=== PATIENT | male | born 1950 | race Caucasian/White ===

== ENCOUNTER 2017-12-31 06:14 | Day surgery (SDC) | payer MEDICARE, OTHER ==
[2017-12-31] MEDS ORDERED: CEFAZOLIN 2 GM/50 ML (PMX) 50 ML IVPB (06:30)
[2017-12-31] MEDS ORDERED: SOD CHLORIDE 0.9% 1,000 ML IV (06:30)
[2017-12-31] MEDS ORDERED: CEFAZOLIN 1 GM INJ (07:00)
[2017-12-31 07:39] LABS: ADD MAN DIFF? NO
[2017-12-31 07:47] LABS: BASOPHIL # 0.1 10^3/ul (0.0-0.1); BASOPHILS % 0.6 % (0.0-2.0); EOSINOPHILS # 0.1 10^3/ul (0.0-0.5); EOSINOPHILS % 0.6 % (0.0-7.0); HEMATOCRIT 44.4 % (42.0-52.0); LYMPHOCYTES # 1.4 10^3/ul (0.8-2.9); LYMPHOCYTES % 17.2 % (15.0-51.0); MEAN CORPUSCULAR HEMOGLOBIN 30.8 pg (29.0-33.0); MEAN CORPUSCULAR VOLUME 85.5 fl (82.0-101.0); MEAN PLATELET VOLUME 9.6 fl (7.4-10.4); MONOCYTE # 0.6 10^3/ul (0.3-0.9); NEUTROPHILS % 73.9 % (39.0-77.0); PLATELET COUNT 234 10^3/UL (140-415); RED BLOOD COUNT 5.19 10^6/ul (4.70-6.10); RED CELL DISTRIBUTION WIDTH 13.1 % (11.5-14.5)
[2017-12-31 07:47] LABS: WHITE BLOOD COUNT 8.1 10^3/ul (4.8-10.8)
[2017-12-31 08:01] LABS: INR 0.92; PARTIAL THROMBOPLASTIN TIME 26.7 Sec (25.0-35.0); PROTIME 12.4 Sec (11.9-14.9)
[2017-12-31 08:10] LABS: ANION GAP 19 (8-16); CARBON DIOXIDE 23 mmol/L (21-31); CHLORIDE 103 mmol/L (97-110); GLUCOSE 117 mg/dl (70-220)
[2017-12-31 08:12] LABS: BLOOD UREA NITROGEN 18 mg/dl (7-20); CALCIUM 9.7 mg/dl (8.4-10.2); SODIUM 141 mmol/L (135-144)
[2017-12-31] MEDS ORDERED: BUPIVACAINE 0.25% (MPF) 30 ML INJ (08:39)
[2017-12-31] MEDS ORDERED: ACETAMINOPHEN 1000MG/100ML IV 100 ML (08:58)
[2017-12-31] MEDS ORDERED: KETOROLAC 30 MG INJ (08:58)
[2017-12-31] MEDS ORDERED: ONDANSETRON 4 MG INJ (08:59)
[2017-12-31] MEDS: LIDOCAINE 2% (MDV) 20 ML INJ (09:11)
[2017-12-31] MEDS: BUPIVACAINE 0.5% (SDV) 30 ML INJ (09:11)
[2017-12-31] MEDS ORDERED: HYDROCODONE/APAP (5/325) TAB (10:03)
[2017-12-31] MEDS: HYDROCODONE/APAP (5/325) TAB PO (10:07)
== END 2017-12-31 10:35 | disposition home or self-care (01) ==
LOC: SDS 06:14
DX: D17.22 Benign lipomatous neoplasm of skin and subcutaneous tissue of left arm (principal); I10 Essential (primary) hypertension
CPT/HCPCS: 14021; 71045; 80048; 85025; 85610; 85730; 88307; 93005